=== PATIENT | female | born 1995 | race Hispanic/Latino ===

== ENCOUNTER 2020-07-26 18:58 | Day surgery (SDC) | payer OTHER ==
[2020-07-26] MEDS ORDERED: hydrALAZINE 20 MG/ML VIAL SLOW IVP PRN (20:19)
== END 2020-07-26 20:30 | disposition home or self-care (01) ==
LOC: CSHLD/OP 18:58
PROVIDERS: ATTEND Family Medicine
DX: O9A.212 Injury, poisoning and certain other consequences of external causes complicating pregnancy, second trimester (principal); S39.91XA Unspecified injury of abdomen, initial encounter; Z3A.24 24 weeks gestation of pregnancy; W10.9XXA Fall (on) (from) unspecified stairs and steps, initial encounter
CPT/HCPCS: 99282

== ENCOUNTER 2024-02-01 21:04 | Inpatient (IN) | payer OTHER ==
[2024-02-01 21:26] VITALS: BMI 34.7
[2024-02-01 22:01] LABS: Fetal Membranes Rupture RUPTURE DETECTED (No Rupture)
[2024-02-01] MEDS ORDERED: HYDROcodone/Acetaminophen 5/325 mg Tablet PO PRN ×2 (22:20)
[2024-02-01] MEDS ORDERED: Carboprost 250 MCG/ML AMP IM PRN (22:20)
[2024-02-01] MEDS ORDERED: fentaNYL 50 mcg/mL 1 mL Vial SLOW IVP PRN (22:20)
[2024-02-01] MEDS ORDERED: Misoprostol 200 MCG TAB PR PRN (22:20)
[2024-02-01] MEDS ORDERED: Tranexamic Acid 1,000 MG/10 ML VIAL IVP PRN (22:20)
[2024-02-01] MEDS ORDERED: Zolpidem Tartrate 5 MG TAB PO PRN (22:20)
[2024-02-01] MEDS ORDERED: Acetaminophen 500 MG TAB PO PRN (22:20)
[2024-02-01] MEDS ORDERED: Ondansetron PF 4 MG/2 ML Vial IVP PRN (22:20)
[2024-02-01] MEDS ORDERED: Lidocaine 1% (PF) 30 ML VIAL SC PRN (22:20)
[2024-02-01] MEDS ORDERED: Promethazine HCl 25 MG/ML VIAL IM PRN (22:20)
[2024-02-01] MEDS ORDERED: hydrALAZINE 20 MG/ML VIAL SLOW IVP PRN (22:20)
[2024-02-01] MEDS ORDERED: Methylergonovine 0.2 MG/ML VIAL IM PRN (22:20)
[2024-02-01] MEDS ORDERED: Lactated Ringer's 1,000 ML IV SCH (22:30)
[2024-02-01] MEDS ORDERED: Oxytocin 30 units/NS 500 ML 500 ML IV SCH ×2 (22:30)
[2024-02-01] MEDS ORDERED: Penicillin G Potassium 5 MILL.UNITS in Sodium Chloride 0.9% 100 ML IVPB SCH (22:30)
[2024-02-01 22:39] LABS: Hematocrit 32.1 % (34.9-44.5); Hemoglobin 10.5 g/dL (12.0-15.5); Mean Corpuscular HGB CONC 32.7 g/dL (32.0-36.0); Mean Corpuscular Hemoglobin 28.4 pg (27.0-33.0); Mean Corpuscular Volume 86.8 fL (81.6-98.3); Mean Platelet Volume 9.8 fL (7.4-10.4); Platelet Count 276 10x3/uL (150-450); RBC Distribution Width 13.7 % (11.5-14.5); White Blood Cell (WBC) Count 9.4 10x3/uL (3.5-10.5)
[2024-02-01 23:13] LABS: Syphilis Antibody Nonreactive (Nonreactive); Syphilis Antibody Index 0.03 S/CO (<1.00 Non-Reactive)
[2024-02-01 23:15] LABS: HBsAg Index 0.21 S/CO (0-0.99); Hep B Surf Ag - L&D Non-Reactive S/CO (NonReactive)
[2024-02-02] MEDS ORDERED: Moisturizing Cream (Eucerin) 113 GM JAR TOP PRN (09:38)
[2024-02-02] MEDS ORDERED: Lactated Ringer's 500 ML IV PRN (09:38)
[2024-02-02] MEDS ORDERED: ePHEDrine Sulfate 50 MG/10 ML VIAL SLOW IVP PRN (09:38)
[2024-02-02] MEDS ORDERED: Naloxone HCl 0.4 mg/ml Vial IVP PRN ×2 (09:38)
[2024-02-02] MEDS ORDERED: Ondansetron PF 4 MG/2 ML Vial IVP PRN ×2 (09:38→23:50)
[2024-02-02] MEDS ORDERED: Promethazine HCl 25 MG/ML VIAL IM PRN ×2 (09:38→23:50)
[2024-02-02] MEDS ORDERED: Acetaminophen 325 MG TAB PO PRN (09:38)
[2024-02-02] MEDS ORDERED: Communication Order-Pharmacy FS SCH (09:45)
[2024-02-02] MEDS: fentaNYL 2 mcg/Ropivacaine 0.2% Epidural 100 ML CADD EPIDURAL SCH (10:07)
[2024-02-02] MEDS: Penicillin G 2.5 MILL.units 2.5 MILL.UNITS in Premix 1 BAG IVPB SCH (11:27)
[2024-02-02] MEDS: diphenhydrAMINE 50 MG/ML VIAL IVP PRN (21:37)
[2024-02-02] MEDS: Ibuprofen 800 MG TAB PO SCH (22:43)
[2024-02-02] MEDS ORDERED: Preparation H Ointment 28 GM TUBE PR PRN (23:50)
[2024-02-02] MEDS ORDERED: Zolpidem Tartrate 5 MG TAB PO PRN (23:50)
[2024-02-02] MEDS ORDERED: Misoprostol 200 MCG TAB VAG PRN (23:50)
[2024-02-02] MEDS ORDERED: Lanolin Ointment 7 GM TUBE TOP PRN (23:50)
[2024-02-02] MEDS ORDERED: Methylergonovine 0.2 MG/ML VIAL IM PRN (23:50)
[2024-02-02] MEDS ORDERED: hydrALAZINE 20 MG/ML VIAL SLOW IVP PRN (23:50)
[2024-02-02] MEDS ORDERED: HYDROcodone/Acetaminophen 5/325 mg Tablet PO PRN (23:50)
[2024-02-02] MEDS ORDERED: diphenhydrAMINE 25 MG CAP PO PRN (23:50)
[2024-02-02] MEDS ORDERED: Milk Of Magnesia 30 ML UDCUP PO PRN (23:50)
[2024-02-02] MEDS ORDERED: Bisacodyl 10 MG SUPP PR PRN (23:50)
[2024-02-02] MEDS ORDERED: Oxytocin 30 units/NS 500 ML 500 ML IV SCH (23:50)
[2024-02-03] MEDS: HYDROcodone/Acetaminophen 5/325 mg Tablet PO PRN (01:31)
[2024-02-03] MEDS: Ibuprofen 800 MG TAB PO PRN (05:34)
[2024-02-03] MEDS: Benzocaine-Menthol 82.5 ML CAN TOP PRN (05:40)
[2024-02-03] MEDS: Calcium Carbonate 500 MG ChewTAB PO SCH (07:38)
[2024-02-03] MEDS: fentaNYL/Ropivacaine Epidural 100 ML ONE (07:38)
[2024-02-03] MEDS: Boostrix 0.5 ML (Tdap) VIAL (>/=7 yrs of age) IM ONE (07:39)
[2024-02-03] MEDS: Varicella virus, LIVE 0.5 ML VIAL SC ONE (07:40)
[2024-02-03] MEDS: Measles/Mumps/Rubella 10 MCG/0.5 ML VIAL SC ONE (07:40)
[2024-02-03] MEDS: Docusate 100 MG CAP PO SCH (08:27)
[2024-02-03] MEDS: Prenatal Vitamin 1 TAB PO SCH (08:27)
[2024-02-03] MEDS: Ferrous Sulfate 325 MG TAB PO SCH (08:27)
[2024-02-03] MEDS: Penicillin G Potassium 5 MILL.UNITS VIAL ONE (12:30)
[2024-02-03] MEDS: Lactated Ringer's 1,000 ML IV SCH (12:30)
[2024-02-04 07:50] VITALS: BP 117/66; TEMP 98
== END 2024-02-04 13:40 | disposition home or self-care (01) | DRG 807 ==
LOC: CSHLD/OP 21:04 → CSHLD 22:07 → CSHPED 02-03 00:10
PROVIDERS: ADMIT Student in an Organized Health Care Education/Training Program; ATTEND Student in an Organized Health Care Education/Training Program
PROC: 10E0XZZ Delivery of Products of Conception, External Approach (ICD-10-PCS; principal; 2024-02-02)
PROC: 0KQM0ZZ Repair Perineum Muscle, Open Approach (ICD-10-PCS; 2024-02-02)
PROC: 0UQMXZZ Repair Vulva, External Approach (ICD-10-PCS; 2024-02-02)
DX: O42.02 Full-term premature rupture of membranes, onset of labor within 24 hours of rupture (principal); Z37.0 Single live birth; Z3A.39 39 weeks gestation of pregnancy; O34.211 Maternal care for low transverse scar from previous cesarean delivery; O70.1 Second degree perineal laceration during delivery; O71.82 Other specified trauma to perineum and vulva; O74.5 Spinal and epidural anesthesia-induced headache during labor and delivery
CPT/HCPCS: 51702; 84112; 85027; 86780; 86850; 86900; 86901; 87340; 99285; J1200; J2540

== ENCOUNTER 2024-02-12 19:56 | Emergency (ER) | payer OTHER ==
[2024-02-12 20:52] LABS: Bilirubin 1+ (Negative); Blood, Urine 250 (Negative); Clarity Slightly Cloudy (Clear); Glucose, Urine (Dipstick) Normal (Negative); Ketone, Urine Negative (Negative); Leukocyte 100 (Negative); Nitrite Negative (Negative); Protein, Urine (Dipstick) 30 mg/dl (Neg-Trace); Urobilinogen Normal mg/dL (Less than 2)
[2024-02-12 21:01] LABS: #Basophils 0.03 10x3/uL (0.0-0.2); #Eosinophils 0.09 10x3/uL (0.0-0.5); #Monocytes 0.46 10x3/uL (0.0-1.1); #Neutrophils 9.68 10x3/uL (1.5-8.4); %Basophils 0.2 % (0.0-2.0); %Eosinophils 0.7 % (0.0-6.0); %Monocytes 3.8 % (0.0-10.0); %Neutrophils 80.6 % (40.0-75.0); Hematocrit 34.8 % (34.9-44.5); Hemoglobin 11.1 g/dL (12.0-15.5); Mean Corpuscular HGB CONC 31.9 g/dL (32.0-36.0); Mean Corpuscular Hemoglobin 28.2 pg (27.0-33.0); Mean Corpuscular Volume 88.3 fL (81.6-98.3); Mean Platelet Volume 9.1 fL (7.4-10.4); Platelet Count 283 10x3/uL (150-450); RBC Distribution Width 15.3 % (11.5-14.5); Red Blood Cell (RBC) Count 3.94 10x6/uL (3.90-5.03)
[2024-02-12 21:15] LABS: PTT 25.9 sec (22.0-33.0); Prothrombin Time 10.7 sec (9.5-12.1)
[2024-02-12 21:32] LABS: ALT (SGPT) 19 U/L (8-55); AST (SGOT) 12 U/L (5-34); Albumin 2.8 g/dL (3.5-5.0); Alkaline Phosphatase 101 U/L (40-110); Anion Gap 14 mmol/L (10-20); BUN (Urea Nitrogen) 12 mg/dL (7.0-18.7); Bilirubin, Total 0.4 mg/dL (0.2-1.2); Calc. Creatinine Clearance 0 mL/min (70-130); Calcium 8.8 mg/dL (7.8-10.44); Carbon Dioxide 21 mmol/L (22-29); Chloride 107 mmol/L (98-107); Estimated GFR 121; Globulin 3.7 g/dL (2.4-3.5); Glucose 108 mg/dL (70-105); Potassium 3.6 mmol/L (3.5-5.1); Protein, Total 6.5 g/dL (6.0-8.3); Sodium 138 mmol/L (136-145)
[2024-02-12] MEDS ORDERED: Acetaminophen 500 MG TAB ONE (21:32)
[2024-02-12 21:40] LABS: BHCG - Serum POSITIVE (NEGATIVE); Pregs Control Background? CLEAR/WHITE (CLR/WHITE); Pregs Control Bar Appear? YES (CONTROL BAR)
[2024-02-12 21:42] LABS: Bacteria/HPF Rare-Few HPF (None Seen); CAUTI Indications for Culture Pelvic or flank pain; RBC/HPF 21-50 HPF (0-3); Squamous Epithelial 0-3 HPF (0-3)
[2024-02-12 21:43] LABS: Mucous/LPF 2+ LPF (<2+)
[2024-02-12 21:44] LABS: Urine Culture Reflex Yes Yes
[2024-02-13 19:17] LABS: Chlamydia by PCR, Vaginal Swab Not Detected (NotDetected); GC by PCR, Vaginal Swab Not Detected (NotDetected)
== END 2024-02-12 23:30 | disposition home or self-care (01) ==
LOC: CSHERS 19:56
DX: N39.0 Urinary tract infection, site not specified (principal); Z55.6 Problems related to health literacy
CPT/HCPCS: 36415; 76856; 80053; 81001; 83605; 84703; 85025; 85610; 85730; 86850; 86900; 86901; 87086; 87480; 87491; 87510; 87591; 87660